=== PATIENT | male | born 1995 | race Caucasian/White ===

== ENCOUNTER 2017-04-15 17:15 | Emergency (ER) | payer BC, SELFPAY ==
[2017-04-15 17:16] VITALS: BP 152/68; PULSE 55; RESP 16; TEMP 36.9; O2SAT 96; BMI 29.4
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
--- NOTE | 2017-04-15 18:47 | ED.DEP ---
ED Disposition - Plan for ED Patient: Disposition: Home or Assisted Living Chief Complaint: Head Injury Instructions: ED Concussion Referrals: Nicolas Walsh MD [Primary Care Provider] - 1 Week
== END 2017-04-15 18:55 | disposition home or self-care (01) ==
PROVIDERS: Emergency Provider Emergency Medicine; Family Provider Pediatrics; PCP Pediatrics
DX: S06.0X0A Concussion without loss of consciousness, initial encounter (principal); V89.2XXA Person injured in unspecified motor-vehicle accident, traffic, initial encounter; Y93.9 Activity, unspecified; Y92.411 Interstate highway as the place of occurrence of the external cause; Y99.9 Unspecified external cause status; Z72.0 Tobacco use
CPT/HCPCS: 70450; 99283